=== PATIENT | male | born 1970 | race Caucasian/White ===

== ENCOUNTER → 2019-01-23 | Outpatient (CLI) | payer OTHER ==
[~2019-01-23] MED LIST: LISINOPRIL5 MG PO; NAPROSYN500 MG PO; NASONEX17 GM NS; NORCO 5-325 TA1 EACH PO; OMEPRAZOLE; SINGULAIR; ZOFRAN ODT4 MG PO
== END ==
LOC: CAT 11:52
DX: Z13.6 Encounter for screening for cardiovascular disorders (principal); E78.00 Pure hypercholesterolemia, unspecified; I25.10 Atherosclerotic heart disease of native coronary artery without angina pectoris